=== PATIENT | male | born 1975 | race Caucasian/White ===

== ENCOUNTER → 2016-06-18 | Outpatient (CLI) | payer OTHER ==
[~2016-06-18] MED LIST: ASPCH81X PO; FINA5TAB PO; OMEP40CA41 PO; PRD75 PO; ZOLP5TAB PO
[2016-06-18 17:26] LABS: BASO % 0.8 %; BASO ABS # 0.04 K/uL (0-0.2); COMPLETE YES; EOS % 2.5 %; HEMATOCRIT 44.5 % (42-52); IG% 0.2 %; LYMPH ABS # 2.25 K/uL (1.2-3.4); MEAN CELL VOLUME 93.3 fL (80-100); MEAN CORPUSCULAR HEMOGLOBIN 31.9 pg (25-34); MEAN CORPUSCULAR HGB CONC 34.2 g/dl (32-36); MEAN PLATELET VOLUME 10.9 fL (7.4-10.4); MONO % 9.8 %; NEUT % 40.7 %; PLATELET COUNT 228 K/uL (130-400); RED BLOOD COUNT 4.77 M/uL (4.7-6.1); WHITE BLOOD COUNT 4.89 K/uL (4.8-10.8)
[2016-06-18 17:48] LABS: THYROID STIMULATING HORMONE 0.76 uIu/ml (0.300-4.500)
[2016-06-18 17:55] LABS: AST/SGOT 18 U/L (15-37); BLOOD UREA NITROGEN 11 mg/dl (7-18); BUN/CREATININE RATIO 11.5 (10-20); CALCIUM 8.9 mg/dl (8.5-10.1); CARBON DIOXIDE 29 mmol/L (21-32); CHLORIDE 105 mmol/L (98-107); CHOLESTEROL 183 mg/dl (0-200); GLUCOSE 81 mg/dl (70-99); POTASSIUM 4.5 mmol/L (3.5-5.1); SODIUM 140 mmol/L (136-145)
[2016-06-18 17:58] LABS: ALB/GLOB RATIO 1.2 (0.9-2); ALKALINE PHOSPHATASE 83 U/L (45-117); ALT/SGPT 38 U/L (12-78); CHOLESTEROL/HDL RATIO 3.1; HDL CHOLESTEROL 60 mg/dl; LDL CHOLESTEROL CALCULATED 110 mg/dl; TRIGLYCERIDES 64 mg/dl (0-150); VERY LOW DENSITY LIPOPROT CALC 13 mg/dl
== END | disposition home or self-care (01) ==
LOC: C.LABPVFM 13:28
PROVIDERS: ATTEND Family Medicine
DX: R42 Dizziness and giddiness (principal); Z00.00 Encounter for general adult medical examination without abnormal findings

== ENCOUNTER → 2016-11-14 | Day surgery (SDC) | payer OTHER ==
[2016-11-13 13:13] VITALS: Ht 188 cm; Wt 76.4 kg
[~2016-11-14] VITALS: Ht 188 cm; Wt 76.4 kg
[~2016-11-14] MED LIST changes: +LIDOCAINE HCL 2% 2 ML VIAL (20MG/ML) ONE; -PRD75 PO; +PROPOFOL IV EMULSION 10 MG/ML 20 ML VIAL IV ONE
[2016-11-14 15:18] VITALS: TEMP 36.8
--- NOTE | 2016-11-14 15:22 | Endo History and Physical ---
History & Physical Date of Service: Nov 14, 2016. Chief Complaint: Rectal bleeding Referring Physician: Azucena Bach History of Present Illness 41 yo CM who presents for colonoscopy secondary to rectal bleeding. Past Surgical History Hx Cardiac Surgery: Yes (CARDIOVERSION) Hx Internal Defibrillator: No Hx Pacemaker: No Hx Abdominal Surgery: No Hx Post-Op Nausea and Vomiting: No Hx Cancer Surgery: No Hx Thoracic Surgery: No Hx Orthopedic: No Hx Urinary Tract Surgery: No Family History Colon CA, Polyp Social History Smoking Status: Never Smoker Hx Substance Use: Yes (MARIJUANA RARE USE) Hx Alcohol Use: Yes (RARELY) Allergies Coded Allergies: No Known Allergies (Unverified , 11/14/16) Current Medications Reported Home Medications Medications Dose Route/Sig Max Daily Dose Days Date Category Prilosec (Omeprazole) 40 Mg Cap 40 Mg PO DAILY PRN 11/13/16 Reported Proscar (Finasteride) 5 Mg Tab 5 Mg PO QPM 11/13/16 Reported Aspirin Chewable (Aspirin) 81 Mg Chew 81 Mg PO DAILY 11/13/16 Reported Ambien (Zolpidem Tartrate) 5 Mg Tab 5 Mg PO HS PRN 11/13/16 Reported Vital Signs Weight (Kilograms): 76.36 Height (Feet): 6 Height (Inches): 2 Date Time Temp Pulse Resp B/P (MAP) Pulse Ox O2 Delivery O2 Flow Rate FiO2 11/14/16 15:18 36.8 60 18 119/65 (83) 100 Room Air Physical Exam General Appearance: WD/WN, no apparent distress Respiratory/Chest: Auscultation: breath sounds normal Cardiovascular: Heart Auscultation: RRR Abdomen: Bowel Sounds: normal Inspection & Palpation: soft, non-distended, no tenderness, guarding & rebound Assessment and Plan Assessment: 41 yo CM who presents for colonoscopy secondary to rectal bleeding. Plan: Proceed with colonoscopy.
--- NOTE | 2016-11-14 16:23 | GI REPORT ---
Procedure Date: 11/14/2016 3:21 PM Procedure: Colonoscopy Indications: Rectal bleeding Medicines: Monitored Anesthesia Care Complications: No immediate complications. Estimated Blood Loss: Estimated blood loss: none. Procedure: Pre-Anesthesia Assessment: - Prior to the procedure, a History and Physical was performed, and patient medications and allergies were reviewed. The patient's tolerance of previous anesthesia was also reviewed. The risks and benefits of the procedure and the sedation options and risks were discussed with the patient. All questions were answered, and informed consent was obtained. Prior Anticoagulants: The patient has taken aspirin, last dose was 2 days prior to procedure. ASA Grade Assessment: II - A patient with mild systemic disease. After reviewing the risks and benefits, the patient was deemed in satisfactory condition to undergo the procedure. After I obtained informed consent, the scope was passed under direct vision. Throughout the procedure, the patient's blood pressure, pulse, and oxygen saturations were monitored continuously. The scope was introduced through the anus and advanced to the terminal ileum. The colonoscopy was performed without difficulty. The patient tolerated the procedure well. The quality of the bowel preparation was good. The terminal ileum, ileocecal valve, appendiceal orifice, and rectum were photographed. Findings: A 5 mm polyp was found in the ascending colon. The polyp was sessile. The polyp was removed with a hot snare. Resection was complete, but the polyp tissue was not retrieved. A 4 mm polyp was found in the descending colon. The polyp was sessile. The polyp was removed with a cold snare. Resection and retrieval were complete. Multiple small-mouthed diverticula were found in the sigmoid colon. Non-bleeding internal hemorrhoids were found during retroflexion. The hemorrhoids were small. Impression: - One 5 mm polyp in the ascending colon, removed with a hot snare. Resected and retrieved. - One 4 mm polyp in the descending colon, removed with a cold snare. Resected and retrieved. - Diverticulosis in the sigmoid colon. - Non-bleeding internal hemorrhoids. Recommendation: - Resume previous diet. - Continue present medications. - Repeat colonoscopy for surveillance based on pathology results. - Return to primary care physician as previously scheduled. Víctor Baez DO 11/14/2016 4:22:48 PM This report has been signed electronically. Note Initiated On: 11/14/2016 3:21 PM I attest to the content of the Intraoperative Record and orders documented therein, exceptions below
--- NOTE | 2016-11-14 16:31 | Discharge Instructions ---
Endoscopy Patient Instructions Date / Procedure(s) Performed Nov 14, 2016. Colonoscopy Allergy Information Coded Allergies: No Known Allergies (Unverified , 11/14/16) Discharge Date / Findings Nov 14, 2016. Colon polyps Diverticulosis Internal hemorrhoids Medication Instructions Stopped Medication(s): Last aspirin taken on 11/12/16 OK to resume all medications today as prescribed Reported Home Medications Medications Dose Route/Sig Max Daily Dose Days Date Category Prilosec (Omeprazole) 40 Mg Cap 40 Mg PO DAILY PRN 11/13/16 Reported Proscar (Finasteride) 5 Mg Tab 5 Mg PO QPM 11/13/16 Reported Aspirin Chewable (Aspirin) 81 Mg Chew 81 Mg PO DAILY 11/13/16 Reported Ambien (Zolpidem Tartrate) 5 Mg Tab 5 Mg PO HS PRN 11/13/16 Reported Provider Instructions Activity Restrictions - No exercising or heavy lifting for 24 hours. - Do not drink alcohol the day of the procedure. - Do not drive a car or operate machinery until the day after the procedure. - Do not make any important decisions or sign important papers in 24 hours after the procedure. Following Day: - Return to full activity which may include returning to work/school. Diet Start your diet with liquids and light foods (jello, soup, juice, toast). Then eat your usual diet if not nauseated. Treatment For Common After Affects For mild abdominal pain, bloating, or excessive gas: - Rest - Eat lightly - Lie on right side Follow-Up Information Follow-up with Azucena Bach as scheduled Anesthesia Information What You Should Know You have had a procedure that required some medicine to reduce anxiety and discomfort. This treatment is called moderate sedation. After receiving the treatment, you may be sleepy, but you will be able to breathe on your own. The effects of the treatment may last for several hours. Follow these instructions along with Activity/Diet recommendations noted above: * Do NOT do anything where dizziness or clumsiness would be dangerous. * Rest quietly at home today, then you can be up and about tomorrow. * Have a responsible person stay with you the rest of today. * You may have had an I.V. today. If so, you may take the dressing off later today. Recommendations Call your doctor if: * Trouble breathing * Continuous vomiting for more than 24 hours * Temperature above 101 degrees * Severe abdominal pain or bloating * Pain not relieved by pain medicine ordered * There is increased drainage or redness from any incision * A large amount of rectal bleeding greater than 2-3 tablespoons. (If you had a polyp/s removed or have hemorrhoids, a small amount of blood - from the rectum is to be expected.) * You have any unanswered questions or concerns. IN THE EVENT OF A SERIOUS EMERGENCY, GO TO THE NEAREST EMERGENCY ROOM Your discharge instructions were prepared by provider Víctor Baez. Patient Instructions Signature Page Josh Majano Patient (or Guardian) Signature/Date: I have read and understand the instructions given to me by my caregivers. Caregiver/RN/Doctor Signature/Date: The above-named patient and/or guardian has received patient instructions on this date. + Original Patient Signature Page (only) stays with chart. Please make copy for patient.
[2016-11-14 16:55] VITALS: BP 110/69; PULSE 52; O2SAT 100
--- NOTE | 2016-11-14 17:15 | Anesthesiology Progress Note ---
Anesthesia Post Op Note Date & Time Nov 14, 2016 at 17:15 Vital Signs Pain Intensity: 0 Vital Signs Past 12 Hours Date Time Temp Pulse Resp B/P (MAP) Pulse Ox O2 Delivery O2 Flow Rate FiO2 11/14/16 16:55 52 18 110/69 (83) 100 Room Air 11/14/16 16:40 48 18 106/69 (81) 100 Room Air 11/14/16 16:25 52 18 101/58 (72) 100 Room Air 11/14/16 15:18 36.8 60 18 119/65 (83) 100 Room Air Notes Mental Status: alert / awake / arousable, participated in evaluation Pt Amnestic to Procedure: Yes Nausea / Vomiting: adequately controlled Pain: adequately controlled Airway Patency, RR, SpO2: stable & adequate BP & HR: stable & adequate Hydration State: stable & adequate Anesthetic Complications: no major complications apparent
== END | disposition home or self-care (01) ==
LOC: C.GI 14:55
PROVIDERS: ATTEND Internal Medicine
DX: K62.5 Hemorrhage of anus and rectum (principal); D12.2 Benign neoplasm of ascending colon; D12.4 Benign neoplasm of descending colon; K57.30 Diverticulosis of large intestine without perforation or abscess without bleeding; K64.8 Other hemorrhoids; Z80.0 Family history of malignant neoplasm of digestive organs; Z83.71 Family history of colonic polyps; Z79.82 Long term (current) use of aspirin

== ENCOUNTER → 2017-09-16 | Day surgery (SDC) | payer OTHER ==
[2017-09-13 10:09] VITALS: Ht 188 cm; Wt 71.8 kg
[~2017-09-16] VITALS: Ht 188 cm; Wt 71.8 kg
[~2017-09-16] MED LIST changes: +CALC1CHW46; -FINA5TAB PO; -PROPOFOL IV EMULSION 10 MG/ML 20 ML VIAL IV ONE; +PROPOFOL IV EMULSION 10 MG/ML 20 ML VIAL ONE; +SODIUM CHLORIDE 0.9% 500ML 500 ML IV ONE
--- NOTE | 2017-09-16 15:37 | Endo History and Physical ---
History & Physical Date of Service: Sep 16, 2017. Chief Complaint: reflux Referring Physician: Dr. Bach History of Present Illness 42 yo CM who presents for EGD secondary to GERD. Past Surgical History Hx Cardiac Surgery: Yes (CARDIOVERSION) Hx Internal Defibrillator: No Hx Pacemaker: No Hx Abdominal Surgery: No Hx of Implantable Prosthesis: No Hx Post-Op Nausea and Vomiting: No Hx Cancer Surgery: No Hx Thoracic Surgery: No Hx Orthopedic: No Hx Urinary Tract Surgery: No Family History Colon CA, Polyp Social History Smoking Status: Never Smoker Hx Substance Use: No Hx Alcohol Use: Yes (RARELY) Allergies Coded Allergies: No Known Allergies (Unverified , 09/16/17) Current Medications Reported Home Medications Medications Dose Route/Sig Max Daily Dose Days Date Category Antacid (Calcium Carbonate-Mag Hydrox) 1 Chw Chw 09/16/17 Reported Prilosec (Omeprazole) 40 Mg Cap 40 Mg PO DAILY PRN 11/13/16 Reported Aspirin Chewable (Aspirin) 81 Mg Chew 81 Mg PO DAILY 11/13/16 Reported Ambien (Zolpidem Tartrate) 5 Mg Tab 5 Mg PO HS PRN 11/13/16 Reported Vital Signs Weight (Kilograms): 71.82 Height (Feet): 6 Height (Inches): 2 Date Time Temp Pulse Resp B/P (MAP) Pulse Ox O2 Delivery O2 Flow Rate FiO2 09/16/17 14:57 36.8 55 20 107/74 (85) 100 Room Air Physical Exam General Appearance: WD/WN, no apparent distress Respiratory/Chest: Auscultation: breath sounds normal Cardiovascular: Heart Auscultation: RRR Abdomen: Bowel Sounds: normal Inspection & Palpation: soft, non-distended, no tenderness, guarding & rebound Assessment and Plan Assessment: 42 yo CM who presents for EGD secondary to GERD. Plan: Proceed with EGD.
--- NOTE | 2017-09-16 16:02 | GI REPORT ---
Patient Name: Josh Majano Procedure Date: 09/16/2017 3:11 PM Date of : 1975 Admit Type: Outpatient Age: 42 Gender: Male Attending MD: Víctor Baez DO Procedure: Upper GI endoscopy Providers: Víctor Baez DO Referring MD: Nathaly Warner Indications: Suspected gastro-esophageal reflux disease Medicines: Monitored Anesthesia Care Complications: No immediate complications. Estimated Blood Loss: Estimated blood loss: none. Procedure: Pre-Anesthesia Assessment: - Prior to the procedure, a History and Physical was performed, and patient medications and allergies were reviewed. The patient's tolerance of previous anesthesia was also reviewed. The risks and benefits of the procedure and the sedation options and risks were discussed with the patient. All questions were answered, and informed consent was obtained. Prior Anticoagulants: The patient has taken aspirin, last dose was 7 days prior to procedure. ASA Grade Assessment: II - A patient with mild systemic disease. After reviewing the risks and benefits, the patient was deemed in satisfactory condition to undergo the procedure. After obtaining informed consent, the endoscope was passed under direct vision. Throughout the procedure, the patient's blood pressure, pulse, and oxygen saturations were monitored continuously. The scope was introduced through the mouth, and advanced to the second part of duodenum. The upper GI endoscopy was accomplished without difficulty. The patient tolerated the procedure well. Findings: The Z-line was irregular and was found 38 cm from the incisors. Biopsies were taken with a cold forceps for histology. The entire examined stomach was normal. Biopsies were taken with a cold forceps for Helicobacter pylori testing. The examined duodenum was normal. Impression: - Z-line irregular, 38 cm from the incisors. Biopsied. - Normal stomach. Biopsied. - Normal examined duodenum. Recommendation: - Resume previous diet. - Continue present medications. - Await pathology results. - Return to primary care physician as previously scheduled. Víctor Baez DO 09/16/2017 4:02:01 PM This report has been signed electronically. Note Initiated On: 09/16/2017 3:11 PM Number of Addenda: 0 I attest to the content of the Intraoperative Record and orders documented therein, exceptions below {[id number]}
--- NOTE | 2017-09-16 16:15 | Anesthesiology Progress Note ---
Anesthesia Post Op Note Date & Time Sep 16, 2017 at 16:15 Vital Signs Pain Intensity: 0 Vital Signs Past 12 Hours Date Time Temp Pulse Resp B/P (MAP) Pulse Ox O2 Delivery O2 Flow Rate FiO2 09/16/17 15:59 61 16 104/62 (76) 97 Room Air 09/16/17 14:57 36.8 55 20 107/74 (85) 100 Room Air Notes Mental Status: alert / awake / arousable, participated in evaluation Pt Amnestic to Procedure: Yes Nausea / Vomiting: adequately controlled Pain: adequately controlled Airway Patency, RR, SpO2: stable & adequate BP & HR: stable & adequate Hydration State: stable & adequate Anesthetic Complications: no major complications apparent
--- NOTE | 2017-09-16 16:27 | Discharge Instructions ---
Endoscopy Patient Instructions Date / Procedure(s) Performed Sep 16, 2017. EGD Allergy Information Coded Allergies: No Known Allergies (Unverified , 09/16/17) Discharge Date / Findings Sep 16, 2017. Gastric antrum biopsies Distal esophageal biopsies Medication Instructions OK to resume all medications today as prescribed Reported Home Medications Medications Dose Route/Sig Max Daily Dose Days Date Category Antacid (Calcium Carbonate-Mag Hydrox) 1 Chw Chw 09/16/17 Reported Prilosec (Omeprazole) 40 Mg Cap 40 Mg PO DAILY PRN 11/13/16 Reported Aspirin Chewable (Aspirin) 81 Mg Chew 81 Mg PO DAILY 11/13/16 Reported Ambien (Zolpidem Tartrate) 5 Mg Tab 5 Mg PO HS PRN 11/13/16 Reported Provider Instructions Activity Restrictions - No exercising or heavy lifting for 24 hours. - Do not drink alcohol the day of the procedure. - Do not drive a car or operate machinery until the day after the procedure. - Do not make any important decisions or sign important papers in 24 hours after the procedure. Following Day: - Return to full activity which may include returning to work/school. Diet Start your diet with liquids and light foods (jello, soup, juice, toast). Then eat your usual diet if not nauseated. Treatment For Common After Affects For mild abdominal pain, bloating, or excessive gas: - Rest - Eat lightly - Lie on right side Follow-Up Information Follow-up with Dr. Bach as scheduled Anesthesia Information What You Should Know You have had a procedure that required some medicine to reduce anxiety and discomfort. This treatment is called moderate sedation. After receiving the treatment, you may be sleepy, but you will be able to breathe on your own. The effects of the treatment may last for several hours. Follow these instructions along with Activity/Diet recommendations noted above: * Do NOT do anything where dizziness or clumsiness would be dangerous. * Rest quietly at home today, then you can be up and about tomorrow. * Have a responsible person stay with you the rest of today. * You may have had an I.V. today. If so, you may take the dressing off later today. Recommendations Call your doctor if: * Trouble breathing * Continuous vomiting for more than 24 hours * Temperature above 101 degrees * Severe abdominal pain or bloating * Pain not relieved by pain medicine ordered * There is increased drainage or redness from any incision * A large amount of rectal bleeding greater than 2-3 tablespoons. (If you had a polyp/s removed or have hemorrhoids, a small amount of blood - from the rectum is to be expected.) * You have any unanswered questions or concerns. IN THE EVENT OF A SERIOUS EMERGENCY, GO TO THE NEAREST EMERGENCY ROOM Your discharge instructions were prepared by provider Víctor Baez. Patient Instructions Signature Page Josh Majano Patient (or Guardian) Signature/Date: I have read and understand the instructions given to me by my caregivers. Caregiver/RN/Doctor Signature/Date: The above-named patient and/or guardian has received patient instructions on this date. + Original Patient Signature Page (only) stays with chart. Please make copy for patient.
[2017-09-16 16:29] VITALS: BP 100/67; PULSE 60; O2SAT 99
== END | disposition home or self-care (01) ==
LOC: C.GI 14:18
PROVIDERS: ATTEND Internal Medicine
DX: K21.9 Gastro-esophageal reflux disease without esophagitis (principal); I48.91 Unspecified atrial fibrillation; Z79.82 Long term (current) use of aspirin; Z80.0 Family history of malignant neoplasm of digestive organs